=== PATIENT | female | born 1955 | race Caucasian/White ===

== ENCOUNTER 2019-03-03 12:58 | Emergency (ER) | payer MEDICARE ==
[~2019-03-03] VITALS: Ht 167.6 cm; Wt 184.1 kg
[~2019-03-03 12:58] MED LIST: ARIP5TAB8 PO; ATOR20TA86 PO; BUPR-93 PO; HEP5KI SQ; HYDR28.45 TP; INSLAN SQ; INSNOV SQ; LISI-662 PO; NYST30CR9 TP; PANT40TA25 PO; VENL-68 PO; VERA240SR PO; Venlafaxine Hcl PO
[2019-03-03 13:46] LABS: GLUCOSE,POINT OF CARE 82 MG/DL (70-110)
[2019-03-03] MEDS ORDERED: AmLODIPine BESYLATE 5 MG TABLET PO ONE (14:15)
[2019-03-03] MEDS ORDERED: CloNIDine HCL 0.1 MG TABLET PO ONE (14:15)
[2019-03-03 15:06] LABS: BASOPHILS % (AUTO) 0.4 % (0.0-2.0); EOSINOPHILS % (AUTO) 0.4 % (1.0-6.0); HEMATOCRIT 40.4 % (36-46); HEMOGLOBIN 13.1 g/dL (12.0-16.0); LYMPHOCYTES % (AUTO) 17.3 % (22.0-44.0); MEAN CORPUSCULAR HEMOGLOBIN 26.3 pg (26.0-34.0); MEAN CORPUSCULAR HGB CONC 32.3 G/dL (31.0-37.0); MEAN CORPUSCULAR VOLUME 81 fL (80-100); MONOCYTES # (AUTO) 0.7 K/uL (0.1-1.0); MONOCYTES % (AUTO) 6.3 % (2.0-9.0); NEUTROPHILS # (AUTO) 8.7 K/uL (1.8-7.7); NEUTROPHILS % (AUTO) 75.6 % (40.0-70.0); PLATELET COUNT (AUTO) 259 K/uL (150-450); RED BLOOD CELL COUNT(AUTO) 4.97 MIL/uL (4.00-5.20); RED CELL DISTRIBUTION WIDTH 15.8 % (11.5-14.5)
[2019-03-03 15:18] LABS: CALCIUM, TOTAL 8.8 mg/dL (8.8-10.5); CREATININE 1.12 mg/dL (0.60-1.30); POTASSIUM 3.2 mmol/L (3.5-5.1)
[2019-03-03 15:25] LABS: ALBUMIN 3.2 g/dL (3.4-5.0); BILIRUBIN,TOTAL 0.5 mg/dL (0.1-1.0); CHOL/HDL RATIO 2.6 (3.9-5.7)
[2019-03-03 15:46] LABS: HEMOGLOBIN A1C 7.7 % (4.5-6.2)
[2019-03-03 15:58] LABS: APPEARANCE,URINE CLEAR (CLEAR); BILIRUBIN,URINE NEGATIVE (NEGATIVE); GLUCOSE, URINE (UA) NEGATIVE (NEGATIVE); KETONES,URINE NEGATIVE (NEGATIVE); LEUKOCYTE ESTERASE ,URINE NEGATIVE (NEGATIVE); NITRATE,URINE NEGATIVE (NEGATIVE); OCCULT BLOOD,URINE NEGATIVE (NEGATIVE); PH,URINE 6.5 (5.0-8.0); PROTEIN,URINE POS 1+ (NEGATIVE); UROBILINOGEN,URINE 0.2 mg/dL (<=1.0)
[2019-03-03] MEDS ORDERED: POTASSIUM CHLORIDE 10% 40 MEQ/30 ML LIQUID UDCUP PO ONE (16:00)
[2019-03-03 16:03] LABS: BACTERIA,URINE Rare /HPF (None Seen); SQUAMOUS EPITHELIAL CELL,UR Few /LPF (None Seen)
[2019-03-03 16:04] LABS: RBC,URINE 0-2 /HPF (0-2)
[2019-03-03 16:28] VITALS: BP 185/106
== END 2019-03-03 16:55 | disposition home or self-care (01) ==
LOC: EMS 12:59
DX: I10 Essential (primary) hypertension (principal); E87.6 Hypokalemia; E66.01 Morbid (severe) obesity due to excess calories; E11.9 Type 2 diabetes mellitus without complications; E78.00 Pure hypercholesterolemia, unspecified; F41.9 Anxiety disorder, unspecified; F32.9 Major depressive disorder, single episode, unspecified; Z68.44 Body mass index [BMI] 60.0-69.9, adult; Z79.899 Other long term (current) drug therapy; Z79.4 Long term (current) use of insulin
CPT/HCPCS: 83036; 93005